=== PATIENT | female | born 1990 | race Caucasian/White ===

== ENCOUNTER → 2023-09-24 | Emergency (ER) | payer BC ==
[~2023-09-24] MED LIST: ONDANSETRON 4 MG/2 ML VIAL ONE
--- OUTSIDE RECORDS SUMMARY | 2023-09-24 11:52 | XMS REPORT | Continuity of Care Document ---
Author Name Unknown Address [address] [place] [address] [facility] thconnect Address [address] [place] [address] Care Team Providers Care Compliance Tester Name Role Phone REUBEN CORNELIUS JR Primary Care Physician Teresa hermosillo [email or web address] Attending Clinician Unavaila deandra RADIOLOGY Attending Clinician Unavailable Radiology Attending Clinician Unavailable [email or web address] Admitting Clinician Unavaila ROMINA Wright Admitting Clinician Unavailable Payers Payer Name Policy Type Policy Number Effective Date Expirati on Date Source [facility] [id number] 2022 00:00:00 Allergies, Adverse Reactions, Alerts Allergy Name Allergy Type Status Severity Reaction(s) Onset Date Inactive Date Treating Clinician Comments Source NO KNOWN ALLERGIE S Drug Class Active [facility] Social History Social Habit Start Date Stop Date Quantity Comments Source History of tobacco use Cigarette Smoker [facility] Exposure to SARS-CoV-2 (event) 2022-11-10 00:00:00 2022-11-20 14:28:00 Not sure [facility] Alcohol intake 2017-11-11 00:00:00 2017-11-11 00:00:00 Current drinker of alcohol (finding) [facility] Tobacco use and exposure 2017-11-11 00:00:00 2017-11-11 00:00:00 Smokeless tobacco non-user [facility] Alcohol Comment 2015-03-18 00:00:00 2015-03-18 00:00:00 [facility] Sex Assigned At 1990 00:00:00 1990 00:00:00 [facility] Smoking Status Start Date Stop Date Source Ex-smoker 2017-11-11 00:00:00 2017-11-11 00:00:00 [facility] Medications Ordered Medication Name Filled Medication Name Start Date Stop Date Current Medication? Ordering Clinician Indication Dosage Frequency Signature (SIG) Comments Components Source iopamidol (ISOVUE 370-500 mL) injection 84 mL 11-24 17:00: 00 11-24 16:45 :00 No [id number] 84mL 84 mL, Intravenou s, ONCE, 1 dose, On 11/24/22 at 1100, Routine General acute hospital Procedures Procedure Date / Time Performed Performing Clinician Source [facility] PATIENT FINANCIAL POLICY 2022-11-24 15:01:59 Doctor Unassigned, [place] [facility] NO SHOW OR MISSED APPOINTMENT POLICY ACKNOWLEDGEMENT 2022-11-24 15:01:17 Doctor Unassigned, [place] [facility] CONSENT/REFUSAL FOR DIAGNOSIS AND TREATMENT 2022-11-24 15:00:56 Doctor Unassigned, [place] [facility] ASSIGNMENT OF BENEFITS 2022-11-24 15:00:39 Docto r Unassigned, [place] [facility] Encounters Start Date/Time End Date/Time Encounter Type Admission Type Attending [facility] Care Facility Care Department Encounter ID Source 2023-07-26 00:00:00 2023-07-26 00:00:00 Outpatient [email or web address]_[email or web address] [facility] [id number] [facility] 2022-11-24 09:01:14 2022-11-24 23:59:00 Outpatient R RADIOLOGY [facility] [id number] General acute hospital 2022-11-24 09:01:14 2022-11-24 23:59:00 Hospital Encounter Radiology [facility] [id number] General acute hospital
[2023-09-24 13:30] LABS: Absolute Lymphocytes (CBC) 2.6 K/uL (0.7-4.9); Hematocrit 42.9 % (36.0-45.0); Lymphocytes % 24.1 % (15.3-44.8); MCV 86.8 fL (80-100); MPV 7.5 fL (7.6-11.3); Platelets 429 thou/uL (152-406); RBC Red Blood Cell Count 4.94 M/uL (3.86-4.86)
[2023-09-24 13:31] LABS: Specific Gravity 1.024 (1.005-1.030)
[2023-09-24 13:32] LABS: Specific Gravity 1.024 (1.005-1.030); Urine Bacteria None Seen /HPF (<20); Urine Bilirubin NEGATIVE (Negative); Urine Blood Negative (Negative); Urine Clarity Clear (Clear); Urine Color Yellow (Yellow); Urine Glucose NEGATIVE (Negative); Urine Mucus 1+ /HPF (None Seen); Urine Protein TRACE (Negative); Urine RBC <5 /HPF (None Seen); Urine Urobilinogen Normal (Normal); Urine pH 6.5 (5.0-7.0)
[2023-09-24 13:47] LABS: Albumin 4.1 g/dL (3.4-5.0); Bilirubin Total 0.6 mg/dL (0.2-1.0); Potassium 3.9 mEq/L (3.5-5.1); Protein, Total 7.8 g/dL (6.4-8.2)
[2023-09-24 14:06] LABS: SARS-CoV-2 Antigen Rapid Res Negative (Negative)
--- NOTE | 2023-09-24 14:24 | RAD REPORT ---
EXAM DESCRIPTION: CTAbdomen Pelvis W Contrast - 09/24/2023 2:06 pm CLINICAL HISTORY: ABD PAIN COMPARISON: No comparisons TECHNIQUE: CT of the abdomen and pelvis was performed. All CT scans are performed using dose optimization technique as appropriate and may include automated exposure control or mA/KV adjustment according to patient size. FINDINGS: Lower chest: No acute abnormality. Liver: No acute abnormality or suspicious lesions. Biliary: No biliary ductal dilatation. Stomach: No significant focal abnormality. Duodenum: No significant focal abnormality. Pancreas: No significant abnormality. Spleen: No significant abnormality. Adrenal: No suspicious lesions. Kidney/ureter: No hydronephrosis. No renal calculi. Retroperitoneum: No retroperitoneal adenopathy. Vascular: No aneurysm. Bowel: No significant focal abnormality. No appendicitis. Peritoneum: No ascites or free air. Bladder: Grossly unremarkable. Reproductive: No adnexal masses. Bones: No acute fracture. Other: n/a IMPRESSION: No acute intra-abdominal or pelvic finding. No appendicitis.
--- NOTE | 2023-09-24 14:37 | ER ---
Nurse's Notes [facility] Name: Ahsan Roper Age: 33 yrs Sex: Female : 1990 Arrival Date: 09/24/2023 Time: 11:49 Bed 18 Private MD: Ramsey Baptiste Diagnosis: Lower abdominal pain, unspecified Presentation: 09/24 12:07 Chief complaint: Patient states: Nausea and vomiting for 3 days, not eating well for 1 ll1 week. No fever. Coronavirus screen: Client denies travel out of the [place] in the last 14 days. fatigue, nausea, vomiting. Client presents with at least one sign or symptom that may indicate coronavirus-19. Standard/surgical mask placed on the client. Ebola Screen: Patient denies travel to an Ebola-affected area in the 21 days before illness onset. Initial Sepsis Screen: Does the patient meet any 2 criteria? No. Patient's initial sepsis screen is negative. Does the patient have a suspected source of infection? Yes: Acute abdominal pain. Risk Assessment: Do you want to hurt yourself or someone else? Patient reports no desire to harm self or others. Onset of symptoms was September 17, 2023. 12:07 Method Of Arrival: Ambulatory ll1 12:07 Acuity: MIGDALIA 3 ll1 Triage Assessment: 12:09 General: Appears uncomfortable, Behavior is calm, cooperative, appropriate for age. ll1 Pain: Complains of pain in abdomen. Neuro: No deficits noted. Cardiovascular: No deficits noted. GI: Reports lower abdominal pain, upper abdominal pain, nausea, vomiting. Historical: - Allergies: 12:07 No Known Allergies; ll1 - PSHx: 12:07 endometrial SX 09/17; ll1 - Immunization history:: Adult Immunizations up to date. - Social history:: Smoking status: Patient denies any tobacco usage or history of. - Family history:: not pertinent. - Hospitalizations: : No recent hospitalization is reported. Screenin:54 [facility] ED Fall Risk Assessment (Adult) History of falling in the last 3 months, me1 including since admission No falls in past 3 months (0 pts) Confusion or Disorientation No (0 pts) Intoxicated or Sedated No (0 pts) Impaired Gait No (0 pts) Mobility Assist Device Used No (0 pt) Altered Elimination No (0 pt) Score/Fall Risk Level 0 - 2 = Low Risk Maintained a safe environment, Provided non-skid footwear, Hourly rounding (assess needs \T\ fall precautionary measures) done. Abuse screen: Denies threats or abuse. Nutritional screening: No deficits noted. Tuberculosis screening: No symptoms or risk factors identified. Assessment: 13:54 General: Appears uncomfortable, ill, well groomed, well developed, well nourished, me1 Behavior is calm, cooperative, appropriate for age, Reports congestion and cough about 5 days ago that resolved but about 3 days ago nausea and vomiting developed. Pain: Denies pain. Neuro: Level of Consciousness is awake, alert, obeys commands, Oriented to person, place, time, situation, Appropriate for age. Cardiovascular: Capillary refill < 3 seconds Patient's skin is warm and dry. Respiratory: Airway is patent Respiratory effort is even, unlabored, Respiratory pattern is regular, symmetrical. GI: Abdomen is flat, Reports nausea, vomiting, since 3 days ago. Vital Signs: 12:07 BP 112 / 96; Pulse 82; Resp 16; Temp 98.1; Pulse Ox 99% ; ll1 13:51 BP 128 / 98; Pulse 62; Resp 16; Pulse Ox 99% on R/A; me1 14:00 BP 121 / 72; Pulse 68; Resp 16; Pulse Ox 99% on R/A; me1 14:00 BP 110 / 60; Pulse 68; Resp 18; Pulse Ox 97% on R/A; me1 15:03 BP 112 / 79; Pulse 61; Resp 17; Pulse Ox 99% on R/A; me1 ED Course: 11:50 Patient arrived in ED. rg4 11:50 Ramsey Baptiste MD is Private Physician. rg4 11:56 Serjio Bautista MD is Attending Physician. rn 12:09 Triage completed. ll1 12:09 Arm band placed on. ll1 13:22 Inserted saline lock: 22 gauge in right antecubital area, using aseptic technique. ds4 Blood collected. 13:40 Ileana Villavicencio, RN is Primary Nurse. me1 13:48 SARS RAPID Sent. me1 13:48 Flu Sent. me1 13:54 Allergy band placed. Bed in low position. Call light in reach. Side rails up X 1. me1 Provided Education on: POC. Verbalized understanding. . 13:54 No provider procedures requiring assistance completed. me1 14:08 CT Abd/Pelvis - IV Contrast Only In Process Unspecified. EDMS 15:07 IV discontinued, intact, bleeding controlled, No redness/swelling at site. Pressure me1 dressing applied. Administered Medications: 14:37 Drug: Ondansetron IVP 4 mg IVP once; over 2 minutes Route: IVP; Site: right antecubital;me1 15:02 Follow up: Response: No adverse reaction; Nausea is decreased me1 Medication: 13:54 VIS not applicable for this client. me1 Outcome: 14:36 Discharge ordered by . rn 15:06 Discharged to home ambulatory, me1 15:06 Condition: stable 15:06 Discharge instructions given to patient, Instructed on discharge instructions, follow up and referral plans. medication usage, Demonstrated understanding of instructions, follow-up care, medications, Prescriptions given X 1, 15:07 Patient left the ED. me1 Signatures: Dispatcher [employer] EDMS Serjio Bautista MD MD rn Swanson, Donovan ds4 [place] Donaldson rg4 Kimberly Rueda RN RN ll1 Ileana Villavicencio RN RN me1 Corrections: (The following items were deleted from the chart) 13:54 12:07 Chief complaint: Patient states: Nausea and vomiting for 3 days, not eating well me1 for 1 week. No fever ll1
--- NOTE | 2023-09-24 14:37 | EDPHYS ---
Physician Documentation [facility] Name: Ahsan Roper Age: 33 yrs Sex: Female : 1990 Arrival Date: 09/24/2023 Time: 11:49 Bed 18 Private MD: Ramsey Baptiste ED Physician Serjio Bautista HPI: 09/24 13:28 This 33 yrs old Female presents to ER via Ambulatory with complaints of Nausea. rn 13:28 The patient presents to the emergency department with nausea, vomiting, abdominal pain. rn Onset: The symptoms/episode began/occurred 1 week(s) ago. Possible causes: unknown. The symptoms are aggravated by nothing. The symptoms are alleviated by nothing. Associated signs and symptoms: Pertinent positives: abdominal pain, nausea, vomiting, Pertinent negatives: fever, GI bleeding, vaginal discharge. Severity of symptoms: At their worst the symptoms were mild in the emergency department the symptoms are unchanged. The patient has experienced similar episodes in the past. Patient reports at the beginning of the week had upper respiratory infection with cough and congestion, now having abdominal cramping with nausea and vomiting. No fever. Reports also has history of endometriosis with surgery 1 month ago and is wondering if that has anything to do with it. Patient also concerned that she might be given the last time she felt nauseous like this she was . Took test at home and was negative.. Historical: - Allergies: 12:07 No Known Allergies; ll1 - PSHx: 12:07 endometrial SX 09/17; ll1 - Immunization history:: Adult Immunizations up to date. - Social history:: Smoking status: Patient denies any tobacco usage or history of. - Family history:: not pertinent. - Hospitalizations: : No recent hospitalization is reported. ROS: 13:28 Constitutional: Negative for fever, chills, and weight loss, Cardiovascular: Negative rn for chest pain, palpitations, and edema, Respiratory: Negative for shortness of breath, cough, wheezing, and pleuritic chest pain, Abdomen/GI: Positive for abdominal pain/nausea/vomiting Back: Negative for injury and pain, : Negative for injury, bleeding, discharge, and swelling, MS/Extremity: Negative for injury and deformity, Skin: Negative for injury, rash, and discoloration, Neuro: Negative for headache, weakness, numbness, tingling, and seizure, Exam: 13:28 Constitutional: This is a well developed, well nourished patient who is awake, alert, rn and in no acute distress. Cardiovascular: Regular rate and rhythm. No pulse deficits. Respiratory: No increased work of breathing, no retractions or nasal flaring. Abdomen/GI: Soft, mild suprapubic tenderness. No rebound MS/ Extremity: Pulses equal, no cyanosis. Neuro: Awake and alert, GCS 15 Vital Signs: 12:07 BP 112 / 96; Pulse 82; Resp 16; Temp 98.1; Pulse Ox 99% ; ll1 13:51 BP 128 / 98; Pulse 62; Resp 16; Pulse Ox 99% on R/A; me1 14:00 BP 121 / 72; Pulse 68; Resp 16; Pulse Ox 99% on R/A; me1 14:00 BP 110 / 60; Pulse 68; Resp 18; Pulse Ox 97% on R/A; me1 15:03 BP 112 / 79; Pulse 61; Resp 17; Pulse Ox 99% on R/A; me1 MDM: 11:56 Patient medically screened. rn 14:35 Differential diagnosis: Nonspecific abd pain, gastritis, pancreatitis, appendicitis, rn diverticulitis, viral gastroenteritis, gastroenteritis. Data reviewed: vital signs, nurses notes, lab test result(s), radiologic studies, CT scan, and as a result, I will discharge patient. Counseling: I had a detailed discussion with the patient and/or guardian regarding the historical points, exam findings, and any diagnostic results supporting the discharge/admit diagnosis, lab results, radiology results, the need for outpatient follow up, to return to the emergency department if symptoms worsen or persist or if there are any questions or concerns that arise at home. Special discussion: Based on the patient's Hx, exam, and Dx evaluation, there is no indication for emergent surgery or inpatient Tx. It is understood by the patient/guardian that if the Sx's persist or worsen they need to return immediately for re-evaluation. I discussed with the patient/guardian in detail that at this point there is no indication for admission to the hospital. It is understood, however, that if the symptoms persist or worsen the patient needs to return immediately for re-evaluation. 09/24 12:12 Order name: Test, Urine; Complete Time: 14:11 rn 09/24 12:12 Order name: Urinalysis w/ reflexes; Complete Time: 14:11 rn 09/24 12:12 Order name: CBC with Diff; Complete Time: 14:11 rn 09/24 12:12 Order name: CMP; Complete Time: 14: rn 09/24 12:12 Order name: Lipase; Complete Time: 14:11 rn 09/24 12:12 Order name: Flu; Complete Time: 14:25 rn 09/24 12:12 Order name: SARS RAPID; Complete Time: 14: rn 09/24 12:12 Order name: CT Abd/Pelvis - IV Contrast Only; Complete Time: 14:25 rn 09/24 12:12 Order name: IV Saline Lock; Complete Time: 13:23 rn 09/24 12:12 Order name: Labs collected and sent; Complete Time: 13:23 rn Administered Medications: 14:37 Drug: Ondansetron IVP 4 mg IVP once; over 2 minutes Route: IVP; Site: right antecubital;me1 15:02 Follow up: Response: No adverse reaction; Nausea is decreased me1 Disposition Summary: 09/24/23 14:36 Discharge Ordered Notes: Location: Home rn Problem: an ongoing problem rn Symptoms: have improved rn Condition: Stable rn Diagnosis - Lower abdominal pain, unspecified rn Followup: rn - With: Private Physician - When: As needed - Reason: Recheck today's complaints, Re-evaluation by your physician Discharge Instructions: - Discharge Summary Sheet rn - Abdominal Pain, Adult rn - Pain Without a Known Cause rn Forms: - Medication Reconciliation Form rn - Thank You Letter rn - Antibiotic television journalist - Prescription Opioid Use rn - Patient Portal Instructions rn - Leadership Thank You Letter rn Prescriptions: - ondansetron 4 mg Oral Tablet,disintegrating - take 1 tablet ORAL route every 8-10 hours As needed; 10 tablet; Refills: 0, rn Product Selection Permitted Signatures: Dispatcher [employer] Serjio Carter MD MD rn Lewis, Lynsay RN RN ll1 Ileana Villavicencio RN RN me1
[2023-09-24 17:05] VITALS: TEMP 98.1; O2SAT 99
[2023-09-24 17:27] VITALS: BP 112/79
== END ==
LOC: ER 11:49
DX: R10.30 Lower abdominal pain, unspecified (principal); R11.2 Nausea with vomiting, unspecified; Z11.52 Encounter for screening for COVID-19
CPT/HCPCS: 85025; 81001; 36415; 81025; 83690; 80053; 87804 ×2; 74177; 96374; 99284; 87811; Q9967; J2405